=== PATIENT | female | born 1955 | race Caucasian/White ===

== ENCOUNTER → 2024-01-30 08:58 | Outpatient (REF) | payer MEDICARE, SELFPAY | LOC: HWWDC 08:58 | PROVIDERS: ATTENDING PHYSICIAN Obstetrics & Gynecology Gynecology; FAMILY PHYSICIAN Family Medicine | DX: Z12.31 Encounter for screening mammogram for malignant neoplasm of breast (principal) | CPT/HCPCS: 77063; 77067 ==

== ENCOUNTER → 2024-09-09 18:05 | Outpatient (REF) | payer MEDICARE, SELFPAY ==
[2024-09-13 09:27] LABS: HPV, High Risk Not Detected; HPV, High Risk Source Anal
== END ==
LOC: CLAB 18:05
PROVIDERS: ATTENDING PHYSICIAN Physician Assistant
DX: Z86.19 Personal history of other infectious and parasitic diseases (principal)
CPT/HCPCS: 87624; 88112

== ENCOUNTER → 2024-09-25 09:19 | Outpatient (REF) | payer MEDICARE, SELFPAY ==
[2024-09-25 12:51] LABS: HIV Combo Negative (Negative)
[2024-09-26 11:51] LABS: Syphilis/T. pallidum Ab Reflex Negative (Negative)
== END ==
LOC: HWLAB 09:19
PROVIDERS: ATTENDING PHYSICIAN Surgery; FAMILY PHYSICIAN Family Medicine
DX: K60.2 Anal fissure, unspecified (principal)
CPT/HCPCS: 36415; 86694; 86780; 87389

== ENCOUNTER → 2024-12-04 07:30 | Outpatient (REF) | payer MEDICARE, SELFPAY | LOC: CLAB 07:30 | PROVIDERS: ATTENDING PHYSICIAN Surgery | DX: K60.2 Anal fissure, unspecified (principal) | CPT/HCPCS: 88304 ==

== ENCOUNTER → 2025-03-12 13:57 | Outpatient (REF) | payer MEDICARE, SELFPAY | LOC: HWRAD 13:57 | PROVIDERS: ATTENDING PHYSICIAN Obstetrics & Gynecology Gynecology; FAMILY PHYSICIAN Family Medicine | DX: Z78.0 Asymptomatic menopausal state (principal); Z12.31 Encounter for screening mammogram for malignant neoplasm of breast | CPT/HCPCS: 77080 ==